=== PATIENT | male | born 1990 | race African-American/Black ===

== ENCOUNTER 2016-12-07 17:55 | Emergency (ER) | payer SELFPAY ==
[~2016-12-07] VITALS: Ht 175.3 cm; Wt 104.0 kg
[~2016-12-07 17:55] MED LIST: CLIN150 PO
[2016-12-07 17:57] VITALS: BP 148/84; PULSE 72; RESP 16; TEMP 98.4; O2SAT 99
--- NOTE | 2016-12-07 18:15 | PD ---
Physical Exam Date Seen by Provider: December 07, 2016 Time Seen by Provider: 18:14 Narrative 26 yo male here for butt abscess. History of this in the past. Hurts to sit. Draining. No fevers, chills or sweats. No leg pain. No IV drugs. history of MRSA. pain is 8/10 with sitting. Vitals sign stable. Patient awaiting bed placement. Data Data Last Documented VS Vital Signs Date Time Temp Pulse Resp B/P Pulse Ox O2 Delivery O2 Flow Rate FiO2 12/07/16 17:57 98.4 72 16 148/84 99 MDM Medical Record Reviewed: Yes Supervised Visit with HERMELINDA: No Sagar Anne December 07, 2016 18:15
[2016-12-07] MEDS ORDERED: BACT800T5 PO (18:43)
[2016-12-07] MEDS ORDERED: CEPH500C PO (18:43)
[2016-12-07] MEDS ORDERED: PERC5TAB12 PO (18:44)
--- NOTE | 2016-12-07 18:44 | PD ---
HPI Chief Complaint: Skin Problem Time Seen by Provider: 18:30 Travel History International Travel<30 days: No Contact w/Intl Traveler<30days: No Traveled to known affect area: No History of Present Illness HPI Patient is a 26-year-old male presenting to emergency for evaluation of a Left buttock abscess 3 days. Patient states it's painful, reporting his pain as a 6 out of 10. He states it spontaneously started draining yesterday bloody, pus like drainage. He denies any fever, chills, changes in bowel habits, abdominal pain. PFSH Past Medical History Diminished Hearing: No Integumentary: Yes (buttock abscesses) Social History Alcohol Use: Yes (occ) Tobacco Use: No Substance Use: Yes (MARIJUANA) Allergies-Medications (Allergen,Severity, Reaction): Coded Allergies: *MDRO Multi-Drug Resistant Organism (Unverified Adverse Reaction, Unknown , 08/27/15) MRSA Reported Meds & Prescriptions Reported Meds & Active Scripts Active Percocet (Oxycodone-Acetaminophen) 5-325 mg Tab 1 Tab PO Q6H PRN Cephalexin 500 Mg Cap 500 Mg PO Q12H 10 Days Bactrim DS (Sulfamethoxazole-Trimethoprim) 800-160 Mg Tab 1 Tab PO BID Review of Systems Except as stated in HPI: all other systems reviewed are Neg Gastrointestinal: No: Abdominal Pain, Constipation, Changes in Bowel Habits Musculoskeletal: Positive: Myalgias Physical Exam Narrative GENERAL: Well-nourished, well-developed patient. SKIN: Focused skin assessment warm/dry. 3 cm x 2 cm right buttock abscess approximately 1 cm from the rectum. No rectal mass or tenderness noted on exam. Spontaneously draining serous drainage HEAD: Normocephalic. EYES: No scleral icterus. No injection or drainage. NECK: Supple, trachea midline. No JVD or lymphadenopathy. CARDIOVASCULAR: Regular rate and rhythm without murmurs, gallops, or rubs. RESPIRATORY: Breath sounds equal bilaterally. No accessory muscle use. GASTROINTESTINAL: Abdomen soft, non-tender, nondistended. MUSCULOSKELETAL: No cyanosis, or edema. BACK: Nontender without obvious deformity. No CVA tenderness. Data Data Last Documented VS Vital Signs Date Time Temp Pulse Resp B/P Pulse Ox O2 Delivery O2 Flow Rate FiO2 12/07/16 17:57 98.4 72 16 148/84 99 MDM Medical Decision Making Medical Screen Exam Complete: Yes Emergency Medical Condition: Yes Interpretation(s) Vital Signs Date Time Temp Pulse Resp B/P Pulse Ox O2 Delivery O2 Flow Rate FiO2 12/07/16 17:57 98.4 72 16 148/84 99 Differential Diagnosis Abscess versus cellulitis versus rectal abscess versus other Narrative Course Patient is a 26-year-old male presenting to the arm for right buttock abscess. Patient has had similar abscesses in the past in the same spot. Please see procedure report for I&D. Patient tolerated procedure well. Packing was placed , he was advised to return to emergency department 48 hours have packing removed. He is advised to return sooner for any new or worsening symptoms. Patient was educated on wound care, medication administration. He was advised not to drive or operate machinery taking her chronic pain medication. He verbalized understanding of these instructions. Patient is stable for discharge. Procedures Procedure Narrative After the risks and benefits were discussed the following procedure was performed: INCISION AND DRAINAGE OF ABSCESS: The area was prepped and was sterilely draped. A subcutaneous wheal of 1 % Xylocaine with a total number to mL was used to anesthetize the area. The area was properly anesthetized. A number 11 scalpel was used to make a 1-cm incision across the area of the abscess. The abscess was drained an irrigated with normal saline. Quarter inch iodoform packing was placed in the wound. Sterile dressing applied. Patient advised to have packing removed in two days. Diagnosis Primary Impression: Abscess of buttock, right Referrals: Primary Care Physician Patient Instructions: Abscess (GEN), Abscess Follow-up (ED), Abscess Incision and Drainage (ED), General Instructions Departure Forms: Tests/Procedures, Work Release Enter return to work date: Dec 10, 2016 Additional Instructions: Return to emergency department in 48 hours to have packing removed Complete full course of antibiotics as prescribed Do not drive or operate machinery when taking narcotic pain medication Return to emergency department sooner for any new or worsening symptoms Med/Other Pt SpecificInfo: Prescription(s) given Scripts Oxycodone-Acetaminophen (Percocet)5-325 mg Tab1 Tab PO Q6H PRN (PAIN) #15 TAB Ref 0 Prov:Alina Olivera MD 12/07/16 Cephalexin 500 Mg Ict993 Mg PO Q12H 10 Days Ref 0 Prov:Sheila Foster 12/07/16 Sulfamethoxazole-Trimethoprim (Bactrim DS)800-160 Mg Tab1 Tab PO BID #20 TAB Ref 0 Prov:Sheila Foster 12/07/16 Disposition: 01 DISCHARGE HOME Condition: Stable Sheila Foster December 07, 2016 18:44
== END 2016-12-07 19:43 | disposition home or self-care (01) ==
LOC: NEPK 17:55
DX: L02.31 Cutaneous abscess of buttock (principal); Z87.2 Personal history of diseases of the skin and subcutaneous tissue
CPT/HCPCS: 10061